=== PATIENT | female | born 1965 | race Caucasian/White ===

== ENCOUNTER 2018-04-22 08:40 | Emergency (ER) | payer BC ==
[~2018-04-22] VITALS: Ht 172.7 cm; Wt 56.7 kg
[~2018-04-22 08:40] MED LIST: NORCO 5-325 TA1 EACH PO
[2018-04-22] MEDS ORDERED: KRISTALOSE10 GM PO (15:02)
== END 2018-04-22 15:15 | disposition home or self-care (01) ==
LOC: ED 08:40
DX: C50.919 Malignant neoplasm of unspecified site of unspecified female breast (principal); E87.1 Hypo-osmolality and hyponatremia; R79.89 Other specified abnormal findings of blood chemistry
CPT/HCPCS: 74177; 80053; 81001; 82140; 82728; 83540; 83690; 84466; 85025; 85610; 85730; 96360; 99284-25; J7030; Q9967